=== PATIENT | female | born 1980 | race African-American/Black ===

== ENCOUNTER 2018-04-20 13:40 | Emergency (ER) | payer MEDICARE, OTHER ==
[~2018-04-20] VITALS: Ht 160 cm; Wt 58.1 kg
[~2018-04-20 13:40] MED LIST: BUDE1AER; THEO200T22 PO; ZAFI20TA PO
[2018-04-20 13:50] VITALS: BP 111/75
--- NOTE | 2018-04-20 14:10 | NUR ---
37 yo f bib self w/ c/o left side pain x months. pt reports that pmd told her it was arthritis, but she disagrees. reports that it is worse in the cold. amb w/ steady gait. 12/18 pain. taking baclofen, ibuprofen. states heating pad helps. aaox4. hx arthritis, asthma, scoliosis surgery, allergies rx singulair, ventolin, ibuprofen, baclofen
[2018-04-20] MEDS ORDERED: DEXAMETHASONE 10 MG/ML VIAL IM ONE (14:20)
[2018-04-20] MEDS ORDERED: KETOROLAC 60 MG/2 ML VIAL IM ONE (14:20)
--- NOTE | 2018-04-20 14:49 | NUR ---
Pt insisted to have both medications on her rt deltoid
[2018-04-20 16:38] VITALS: BP 119/62
== END 2018-04-20 16:38 | disposition home or self-care (01) ==
LOC: MED 13:40
DX: M54.5 Low back pain (principal); M54.6 Pain in thoracic spine; J45.909 Unspecified asthma, uncomplicated; Z79.899 Other long term (current) drug therapy; Z91.010 Allergy to peanuts; Z91.018 Allergy to other foods
CPT/HCPCS: 96372; 99283; J1100; J1885